=== PATIENT | male | born 1950 | race Caucasian/White ===

== ENCOUNTER 2016-08-06 20:23 | Inpatient (IN) | payer SELFPAY ==
[~2016-08-06] VITALS: Ht 172.7 cm; Wt 72.6 kg
--- NOTE | ~2016-08-06 | EC ---
PATIENT:FABRIZIO ALCANTAR DATE OF SERVICE: 08/06/16 SEX: M MEDICAL RECORD: [id number] DATE OF : [birth year] LOCATION:D.MS Batres220 AGE OF PATIENT: 65 ADMISSION DATE: 08/06/16 REFERRING PHYSICIAN: INTERPRETING PHYSICIAN: KAMRYN RALPH MD ECHOCARDIOGRAM REPORT ECHO CHARGES 4 ECHO COMPLETE CLINICAL DIAGNOSIS: MRSA - R/O VEGETATION ECHOCARDIOGRAPHIC MEASUREMENTS (adult normal given) AC root (d.<3.7cm) 3.5 LV Septum d (<1.2 cm> 1.8 Valve Excursion 2.1 LV Septum (systole) 2.3 Left Atria (s.<4.0cm> 3.2 LVPW d(<1.2cm) 1.4 RV (d.<2.3cm) 2.3 LVPW (sytole) 2.0 LV diastole(<5.6CM) 4.8 MV E-F(>70mm/sec) LV systole 3.0 LVOT Diameter 1.9 MV exc.(>10mm) Est.ejection fraction (50-75%) Pericardial Effusion N DOPPLER: LVIT A 51.0 E 90.0 LA RVSP LVOT 102 AOP1/2T Asc. Ao 130 RVOT 71.0 RA PA 82.0 AV Gradient Peak 6.7 AV Mean 3.3 AV Area 2.2 MV Gradient Peak 4.0 MV Mean 1.7 MV Area COMMENTS: Radiologist Physician: Barb CULLENOE Parking Meter Installer:Clement Eden TAPE# PACS DATE OF SERVICE: 08/13/2016 Echocardiogram FINDINGS: 1. Left ventricular chamber size is within normal limits. Left ventricular systolic function is normal. Overall ejection fraction estimated at 60%. 2. Left atrium, right atrium, and right ventricular chamber sizes are within normal limits. 3. Valvular structures have normal structure and motion. ECHOCARDIOGRAM REPORT [id number] FABRIZIO ALCANTAR 4. Doppler interrogation reveals moderate mitral regurgitation. No other valvular insufficiency or stenosis. 5. No evidence of pericardial effusion or left ventricular thrombus. 6. No evidence of vegetative endocarditis. TRANSINT:[id number] Voice Confirmation ID: [id number] DOCUMENT ID: [id number] KMARYN RALPH MD CC: [id number] DICTATION DATE: 08/13/16 1249 VIDEO SURVEILLANCE TECHNICIAN: 08/13/16 1520 ADM IN [place] [address] [place] [address]
--- NOTE | ~2016-08-06 | HEMODYNAMI ---
PATIENT:FABRIZIO ALCANTAR MEDICAL RECORD: [id number] : [birth year] LOCATION:D.MS Batres2201 ADMISSION DATE: 08/06/16 Generatedon:08/13/201614:33 Patient name: FABRIZIO ALCANTAR Patient #: [id number] SSN: : Date of study: 08/13/2016 Page: Of Hemodynamic Procedure Report Patient Data Patient Demographics Procedure consent was obtained First Name: FABRIZIO Gender: Male Last Name: KATHARINE : 1950 Patient #: [id number] Age: 65 year(s) Race: Unknown Additional ID: [id number] Contact details Address: UNKNOWN State: [place] City: [facility] Zip code: [address] Admission Admission Data Admission Date: 08/06/2016 Admission Time: 23:44 Room #: [id number] Height (in.): 68 BSA: 1.86 (m2) Height (cm.): 172.72 BMI: 24.33 (kg/m2) Weight (lbs.): 160 Weight (kg.): 72.57 Procedure Procedure Types Cath Procedure Peripheral Cath Diagnostic Procedure Cath Peripheral US Vascular Access PICC PICC Line Placement Fluoro Fluoro To 1 Hour Procedure Description Procedure Date Procedure Date: 08/13/2016 Procedure Start Time: 14:20 Procedure End Time: 14:33 Procedure Staff Name Function Sanchez Herrera MD Performing Physician Linda Vu RT Scrub Kaylie Tolliver RN Nurse Lamar Canales RN Nurse Kaylie Tolliver RN Vice President Of Academic Affairs Kaylie Tolliver RN Monitor Procedure Data Cath Procedure Fluoroscopy Diagnostic fluoroscopy Total fluoroscopy Time: 0.7 time: 0.7 min min Diagnostic fluoroscopy Total fluoroscopy dose: 6 dose: 6 mGy mGy Contrast Material Contrast Material Type Amount (ml) Isovue 370 0 Hemodynamics Rest BSA: 1.86 (m2) O2 Consumption: Estimated: 252.96 (ml/min) O2 Consumption indexed : Estimated:136 (ml/min/m) Pre Cath Intra NCS Post Cath Procedure Log Time Note 13:40:52 Patient Weight : 160 kg 13:40:55 Patient Height : 68 cm 13:41:48 Use device set PICC 13:41:50 SorbaView Shield opened to sterile field. 13:41:51 Sterile Angiographic Pack opened to sterile field. 13:41:52 Bag Decanter opened to sterile field. 13:42:02 PowerPICC 5Fr double lumen catheter opened to sterile field. 13:42:19 PICC 13:50:45 Kaylie Tolliver RN sent for patient. Start room use. 13:55:55 Patient received from Med/Surg to IR Alert and oriented. Tansferred to table in Supine position. 14:02:09 Time tracking: Regular hours 14:02:58 Signed procedure consent form obtained from patient. 14:03:01 Pre-procedure instructions explained to patient. 14:03:46 Right Arm area was prepped with chlora-prep and draped in sterile fashion 14:16:16 Sedation plan: Local Anesthetic Lidocaine 14:16:22 --------ALL STOP TIME OUT------ 14:16:23 Final Timeout: patient, procedure, and site verified with staff and physician. All members of the team are in agreement. 14:16:27 Sharps counted by scrub and verified by R.N. 14:16:31 Procedure started. 14:16:31 Full Disclosure recording started 14:20:51 Local anesthetic to right arm with Lidocaine 1% by Sanchez Herrera MD.INITIAL ACCESS ONLY 14:20:54 Venous access obtained using ultrasound guidance. 14:23:18 PICC line was trimmed to 38cm and advanced to the superior vena cava.Position verified under fluoroscopy. 14:28:00 Procedure ended.(Physican Out) 14:28:14 Fluoroscopy time 00.70 minutes. 14:28:18 Fluoroscopy dose: 6 mGy 14:28:18 Flurop Dose total: 6 14:28:22 Contrast amount:Isovue 370 0ml. 14:28:24 Sharps counted by scrub and verified by R.N. 14:28:30 Insertion/operative site no bleeding no hematoma. 14:28:38 Post-op/insertion site Right Arm dressed using a Jacob Sheild. 14:29:09 Post right arm:stable, clean and dry 14:29:19 Post procedure instruction explained to patient.Patient verbalizes understanding. 14:30:37 Procedure type changed to Cath procedure, Peripheral Cath Diagnostic Procedure, Cath Peripheral, US Vascular Access, PICC, PICC Line Placement, Fluoro, Fluoro To 1 Hour 14:32:48 Procedure and supply charges have been captured, reviewed, submitted and are correct. 14:32:55 Patient transfered to Med/Surg with Bed. 14:33:01 Procedure ended. 14:33:01 Full Disclosure recording stopped Device Usage Item Name Manufacture Quantity Catalog Hospital Part Current Minimal Lot# / Number Charge Number Stock Stock Serial# Code Jacob Day [id number] 5 Shield Sterile Cardinal 1 [id number] 5 Angiographic Health Pack Bag Decanter Microtek 1 [id number] 5 [employer] [facility] [id number] 5 5Fr double lumen catheter Signature Audit [place] Stage Time Signature Unsigned Intra-Procedure 08/13/2016 Kaylie Tolliver RN 2:33:33 PM Signatures Monitor : Kaylie Tolliver RN Signature : Date : Time : [place] [id number] [place] [address]
[2016-08-06 21:24] LABS: HEMATOCRIT 35.7 % (42.0-54.0); HEMOGLOBIN 11.8 g/dL (13.5-17.5); MCH 28.7 pg (26.0-34.0); MCHC 33.1 g/dL (31.0-37.0); MCV 86.9 fL (80.0-100.0); MEAN PLATELET VOLUME 9.9 fL (7.4-10.4); PLATELET COUNT 349 10x3/uL (130-400); RBC 4.11 10x6/uL (4.20-6.10); RDW 12.3 % (11.5-14.5); WBC 22.8 10x3/uL (4.8-10.8)
[2016-08-06 21:40] LABS: ANION GAP 10.6 mmol/L (8-16); BILIRUBIN - TOTAL 0.53 mg/dL (0.2-1.3); CALCIUM 8.5 mg/dL (8.5-10.1); CARBON DIOXIDE 30.3 mmol/L (21.0-32.0); CREATININE - SERUM 1.4 mg/dL (0.6-1.3); POTASSIUM - SERUM 3.9 mmol/L (3.5-5.1); PROTEIN - SERUM 7.4 g/dL (6.4-8.2)
[2016-08-06 22:43] LABS: LYMPHOCYTES 10 % (15-50); NEUTROPHILS 88 % (40-80); PLATELET ESTIMATE NORMAL
[2016-08-06 23:18] LABS: CREATINE KINASE 14 UL (21-232); PRO BNP 433 pg/mL (0-125)
[2016-08-06 23:19] LABS: TROPONIN-I < 0.017 ng/mL (0.000-0.060)
[2016-08-06 23:21] LABS: APTT 35.6 SECONDS (22.8-39.4); INR 1.28 (0.85-1.17); PROTIME 15.9 SECONDS (11.6-15.0)
[2016-08-06 23:32] LABS: HEMOGLOBIN A1C 13.2 % (4.8-6.0)
[2016-08-07] VITALS (7 sets, daily range): BP systolic 127–151; BP diastolic 59–72; Ht 172.7 cm; Wt 72.6 kg
--- NOTE | 2016-08-07 00:49 | NUR ---
RN NOTE: PT ARRIVED ON UNIT VIA STRETCHER ESCORTED BY ER NURSE AND SPOUSE. TRANSFERRED TO BED AND POSITIONED FOR COMFORT. ORIENTED TO ROOM AND CALL LIGHT. ELEVATED RIGHT FOOT ON PILLOW. WOUND ON BOTTOM OF RIGHT FOOT UNDER GREAT AND 2ND TOE, WITH REDNESS AND SWELLING.
--- NOTE | 2016-08-07 00:52 | NUR ---
RN NOTE: ADMISSION ASSESSMENT COMPLETE VIA FLOW SHEET.
--- NOTE | 2016-08-07 01:06 | NUR ---
RECIEVED TO ROOM 2200 VIA STRECHER FROM ER ACCOMPAINED BY NEONATAL CRITICAL CARE NURSE. AWAKE,ALERT.ORIENTED. SL TO LEFT FOREARM WITHOUT REDNESS OR EDEMA NOTED. RIGHT FOOT WIHT EDEMA NOTED. HAS OPEN SORE TO BASE OF TOES. NO DRAINAGE NOTED. CULTURES OBTAINED IN ER. CL IN REACH.
--- NOTE | 2016-08-07 02:50 | NUR ---
RESTING QUIETLY. NO DISTRESS NOTED..CL IN REACH.
--- NOTE | 2016-08-07 05:29 | NUR ---
RESTING QUIETLY. NO DISTRESS NOTED. CL IN REACH. LONG TERM CARE SOCIAL WORKER REMAINS AT BEDSIDE.
--- NOTE | 2016-08-07 09:03 | NUR ---
SCHEDULED MEDICATIONS ADMINISTERED AT THIS TIME. LEFT WRIST PATENT WITH NO S/S OF INFILTRATION PRESENT. SIGNIFICANT OTHER AT BEDSIDE. CALL LIGHT IN REACH, WILL CONTINUE WITH PLAN OF CARE. BED IN LOWEST POSITION WITH WHEELS LOCKED.
[2016-08-07 10:29] LABS: BASOPHILS 0.1 % (0-2); EOSINOPHILS 0.3 % (0-7); HEMOGLOBIN 11.1 g/dL (13.5-17.5); IMMATURE GRANULOCYTES 0.5 % (0-5); LYMPHOCYTES 7.2 % (15-50); MCH 28.5 pg (26.0-34.0); MCHC 33.6 g/dL (31.0-37.0); MEAN PLATELET VOLUME 9.1 fL (7.4-10.4); MONOCYTES 3.7 % (2-11); NEUTROPHILS 88.2 % (40-80); PLATELET COUNT 292 10x3/uL (130-400); RBC 3.89 10x6/uL (4.20-6.10); RDW 12.2 % (11.5-14.5); WBC 19.4 10x3/uL (4.8-10.8)
[2016-08-07 10:30] LABS: MCV 84.8 fL (80.0-100.0)
[2016-08-07 10:50] LABS: ALBUMIN 1.7 g/dL (3.4-5.0); ANION GAP 5.3 mmol/L (8-16); BILIRUBIN - TOTAL 0.47 mg/dL (0.2-1.3); CALCIUM 8.3 mg/dL (8.5-10.1); CARBON DIOXIDE 33.2 mmol/L (21.0-32.0); CREATININE - SERUM 1.1 mg/dL (0.6-1.3); POTASSIUM - SERUM 3.5 mmol/L (3.5-5.1); PROTEIN - SERUM 6.7 g/dL (6.4-8.2)
--- NOTE | 2016-08-07 12:14 | NUR ---
BLOOD SUGAR CHECKED AT THIS TIME AND 285. PT TREATED WITH 10 UNITS OF HUMULIN PER ORDER. SCD'S APPLIED AND BOX ALARM TO PT FOR FALL PRECAUTIONS. ASSESSMENT PERFORMED PER FLOWSHEET. PROVIDED PT WITH INCENTIVE SPIROMETER AND INSTRUCTED ON USE. CALL LIGHT IN REACH AND DOOR OPEN. WILL CONTINUE WITH PLAN OF CARE.
--- NOTE | 2016-08-07 13:09 | NUR ---
SPOKE WITH CAMRYN SOLIS TECH ON MED 2 REGARDING NEED FOR TELEMETRY. THERE IS A WAITING LIST AT THIS TIME, BUT PT PLACED ON IT.
--- NOTE | 2016-08-07 19:15 | NUR ---
BEDSIDE REPORT RECEIVED AND CARE OF PT ASSUMED. PT JUST RETURNED FROM MRI...C/O FEELING BAD AND VERY NAUSEATED. HIS C/O THAT RADIOLOGY WAS ROUGH WITH HIM. RE-STARTED IV FLUIDS. TELEMETRY REPLACED. ELEVATED RIGHT FOOT ON PILLOW. WILL MONITOR CLOSLEY FOR NEEDS.
--- NOTE | 2016-08-07 19:20 | NUR ---
ZOFRAN 4 MG IVP GIVEN FOR NAUSEA PER PRN ORDER.
--- NOTE | 2016-08-07 20:41 | NUR ---
HS MEDICATIONS GIVEN TO INCLUDE TYLENOL FOR ELEVATED TEMP. WILL CONTINUE TO MONITOR FOR MEEDS.
--- NOTE | 2016-08-07 20:50 | NUR ---
GAVE TYLENOL PO FOR ELEVATED TEMP. WILL MONITOR FOR EFFECTIVENESS.
--- NOTE | 2016-08-07 21:15 | NUR ---
PT FEELING BETTER. GAVE SNACK OF DIET SODA AND DENIA CRACKERS.
[2016-08-08] VITALS (11 sets, daily range): BP systolic 111–157; BP diastolic 52–79
[2016-08-08 04:36] LABS: BASOPHILS 0.1 % (0-2); EOSINOPHILS 0.2 % (0-7); HEMATOCRIT 33.4 % (42.0-54.0); HEMOGLOBIN 11.1 g/dL (13.5-17.5); IMMATURE GRANULOCYTES 0.4 % (0-5); LYMPHOCYTES 5.9 % (15-50); MCH 28.5 pg (26.0-34.0); MCHC 33.2 g/dL (31.0-37.0); MCV 85.6 fL (80.0-100.0); MEAN PLATELET VOLUME 9.5 fL (7.4-10.4); MONOCYTES 5.6 % (2-11); NEUTROPHILS 87.8 % (40-80); PLATELET COUNT 315 10x3/uL (130-400); RDW 12.3 % (11.5-14.5); WBC 18.3 10x3/uL (4.8-10.8)
[2016-08-08 04:51] LABS: ALBUMIN 1.6 g/dL (3.4-5.0); ANION GAP 7.1 mmol/L (8-16); BILIRUBIN - TOTAL 0.41 mg/dL (0.2-1.3); CALCIUM 8.2 mg/dL (8.5-10.1); CARBON DIOXIDE 33.2 mmol/L (21.0-32.0); CHOL - HDL RATIO 3.2 ratio (2.3-4.9); CREATININE - SERUM 1.2 mg/dL (0.6-1.3); LDL-HDL RATIO 1.7 ratio (1.5-3.5); POTASSIUM - SERUM 3.3 mmol/L (3.5-5.1); PROTEIN - SERUM 6.6 g/dL (6.4-8.2); THYROID STIMULATING HORMONE 0.78 uIU/mL (0.36-3.74)
--- NOTE | 2016-08-08 05:40 | NUR ---
POTASSIUM LEVEL 3.3 THIS AM REQUIRING COVERAGE WITH X4 - 10 MEQ RIDERS PER ELECTROLYTE PROTOCAL. FIRST RIDER STARTING NOW.
--- NOTE | 2016-08-08 08:16 | NUR ---
AWAKE AND ALERT.ORIENTED X3. NO C/O AT THIS TIME. LUNGS ARE CLEAR BUT DIMINISHED. DENIES COUGH. SKIN IS INTACT WITHOUT REDNESS EXCEPT WOUND TO RIGHT FOOT WHICH IS DARKENED AND EXCORIATED BUT REPORTS LOOKING MUCH IMPROVED TODAY. WOUND TO LEFT FOOT UNDER 3RD TOE IS CLOSED WITH DARKENED AREA IN CENTER. IV TO LEFT HAND IS PATENT WITHOUT REDNESS AT INSERTION SITE. DENIES NEEDS. AT BEDSIDE.
--- NOTE | 2016-08-08 10:21 | NUR ---
CONSENTS OBTAINED. ALL QUESTIONS ANSWERED.
--- NOTE | 2016-08-08 12:04 | NUR ---
FSBS 284. GIVEN 10 UNITS REGULAR SUBQ PER SS. PATIENT REMAINS NPO.
--- NOTE | 2016-08-08 14:08 | NUR ---
Patient Name: FABRIZIO ALCANTAR Admission Status: ER Accout number: [id number] Admission Date: 08-06-2016 : 1950 Admission Diagnosis:TYPE 2 DIABETES MELLITUS WITH OTHER SKIN COMPLICATIONS Attending: DALTON Current LOS: 2 Anticipated DC Date: 08-13-2016 Planned Disposition: Home Primary Insurance: UNINSURED DISCOUNT PLAN Discharge Planning Comments: CM MET WITH PATIENT AND (SNOYA) REGARDING D/C NEEDS AND PLANS. STATED SHE WILL DRIVE PATIENT HOME AT DISCHARGE. THERE ARE NO STEPS OR STAIRS AT HIS HOME. PATIENT IS INDEPENDENT WITH HIS CARE AND HAS A WALKER, CANE, AND WHEELCHAIR AT HOME. PATIENT DOES NOT HAVE A PCP AND CHOSE TO USE [facility] ON [address] FOR HIS PHARMACY. PATIENTS DID NOT WANT TO CHOOSE A HOME HEALTH AT THIS TIME AND STATED SHE WANTED TO WAIT AND SEE WHAT DOCTOR RECOMMENDS. CM WILL CONTINUE TO FOLLOW PATIENT WITH D/C NEEDS AND PLANS. PCP NONE [facility] [address] [phone] SONYA () [phone] Chip Crusher Operator: Christen Garcia Is the patient Alert and Oriented? Yes 0 * How many steps to enter\exit or inside your home? 0 0 * PCP NONE 0 * Pharmacy [facility] [address] 0 * Preadmission Environment Home with Family 0 * ADLs Independent 0 * Equipment Cane Walker Wheelchair 0 * List name and contact numbers for known caregivers / representatives who currently or will assist patient after discharge: SONYA () [phone] 0 * Community resources currently utilized None 0 * Additional services required to return to the preadmission environment? Yes 0 * Can the patient safely return to the preadmission environment? Yes 0 * Has this patient been hospitalized within the prior 30 days at any hospital? No 0 Grand Total: 0
--- NOTE | 2016-08-08 14:26 | NUR ---
OFF UNIT VIA BED FOR SURGERY. WITH PATIENT.
--- NOTE | 2016-08-08 16:20 | NUR ---
RETURNED FROM SURGERY. A/O X3. WOUND VAC TO RIGHT FOOT PATENT WITH SEROUS SANGUINESS DRAINAGE. NO NEEDS. NOTED. VSS.
--- NOTE | 2016-08-08 18:32 | NUR ---
ATE ALL OF SUPPER. DENIES NEEDS. AT BEDSIDE. VSS. DRESSING TO RIGHT FOOT INTACT.
--- NOTE | 2016-08-08 21:40 | NUR ---
PATIENT RESTING IN BED WITH AT BEDSIDE AND DENIES NEEDS AT THIS TIME. ADMINISTERED MEDS PER ORDERS. PATIENT DENIES OTHER NEEDS AT THIS TIME. BED IN LOWEST POSITION AND CALL LIGHT WITHIN REACH. ENCOURAGED THE PATIENT TO CALL IF HE HAS FURTHER NEEDS.
[2016-08-09] VITALS: BP 136/71
[2016-08-09 04:00] VITALS: BP 135/60
[2016-08-09 06:58] LABS: BASOPHILS 0.1 % (0-2); EOSINOPHILS 0.2 % (0-7); HEMOGLOBIN 10.5 g/dL (13.5-17.5); IMMATURE GRANULOCYTES 0.5 % (0-5); LYMPHOCYTES 6.9 % (15-50); MCH 28.5 pg (26.0-34.0); MCHC 32.8 g/dL (31.0-37.0); MCV 86.7 fL (80.0-100.0); MONOCYTES 5.5 % (2-11); NEUTROPHILS 86.8 % (40-80); PLATELET COUNT 277 10x3/uL (130-400); RBC 3.69 10x6/uL (4.20-6.10); RDW 12.5 % (11.5-14.5)
[2016-08-09 07:23] LABS: ALBUMIN 1.5 g/dL (3.4-5.0); ANION GAP 4.3 mmol/L (8-16); BILIRUBIN - TOTAL 0.44 mg/dL (0.2-1.3); CALCIUM 7.8 mg/dL (8.5-10.1); CARBON DIOXIDE 31.2 mmol/L (21.0-32.0); CREATININE - SERUM 1.1 mg/dL (0.6-1.3); POTASSIUM - SERUM 3.5 mmol/L (3.5-5.1); PROTEIN - SERUM 6.2 g/dL (6.4-8.2)
--- NOTE | 2016-08-09 07:30 | NUR ---
AWAKE AND ALET. ORIENTED X3. NO C/O AT THIS TIME. LUNGS ARE CLEAR BILATERALLY, OCCASSIONAL DRY COUGH NOTED. SKIN IS INTACT WITHOUT REDNESS EXCEPT WOUND TO RIGHT FOOT AMPUTATION OF SECOND TOE, WHICH HAS A WOUND VAC IN PLACE WITH SCANT SEROUS SANGUINESS DRAINAGE NOTED. IV TO LEFT FOREARM IS PATENT WITHOUT REDNESS AT INSERTION SITE. DENIES NEEDS.
[2016-08-09 07:32] VITALS: BP 117/52
--- NOTE | 2016-08-09 08:15 | NUR ---
BREAKFAST SERVED IN ROOM. AT BEDSIDE ASSISTED WITH SET UP. DENIES NEEDS.
[2016-08-09 11:20] VITALS: BP 152/68
--- NOTE | 2016-08-09 12:00 | NUR ---
FSBS 260. GIVEN 10 UNITS REGULAR SUBQ PER SS. LUNCH SERVED IN ROOM. FEEDS SELF. 275cc CLEAR YELLOW URINE IN URINAL.
--- NOTE | 2016-08-09 15:00 | NUR ---
HAS RETURNED TO ROOM. DENIES NEEDS.
[2016-08-09 15:26] VITALS: BP 142/60
--- NOTE | 2016-08-09 17:14 | NUR ---
SITTING UP IN BED EATING SUPPER. FSBS 249. GIVEN 8 UNITS REGULAR SUBQ PER SS. AT BEDSIDE. DENIES NEEDS.
[2016-08-09 20:00] VITALS: BP 146/61
--- NOTE | 2016-08-09 21:03 | NUR ---
PATIENT RESTING IN BED WITH AT BEDSIDE. ADMINISTERED MEDS PER ORDERS. PATIENT DENIES OTHER NEEDS AT THIS TIME. BED IN LOWEST POSITION AND CALL LIGHT WITHIN REACH. ENCOURAGED THE PATIENT TO CALL IF HE HAS NEEDS.
[2016-08-10] VITALS: BP 131/59
[2016-08-10 04:00] VITALS: BP 142/66
[2016-08-10 05:25] LABS: BASOPHILS 0.1 % (0-2); EOSINOPHILS 0.8 % (0-7); HEMATOCRIT 31.2 % (42.0-54.0); HEMOGLOBIN 10.1 g/dL (13.5-17.5); IMMATURE GRANULOCYTES 0.6 % (0-5); LYMPHOCYTES 9.2 % (15-50); MCH 28.4 pg (26.0-34.0); MCHC 32.4 g/dL (31.0-37.0); MCV 87.6 fL (80.0-100.0); MEAN PLATELET VOLUME 9.5 fL (7.4-10.4); MONOCYTES 5.4 % (2-11); NEUTROPHILS 83.9 % (40-80); PLATELET COUNT 329 10x3/uL (130-400); RBC 3.56 10x6/uL (4.20-6.10); RDW 12.4 % (11.5-14.5); WBC 15.8 10x3/uL (4.8-10.8)
[2016-08-10 06:03] LABS: ALBUMIN 1.4 g/dL (3.4-5.0); ANION GAP 8.2 mmol/L (8-16); BILIRUBIN - TOTAL 0.33 mg/dL (0.2-1.3); C-REACTIVE PROTEIN 17.7 mg/dL (0.0-0.9); CALCIUM 7.5 mg/dL (8.5-10.1); CARBON DIOXIDE 29.6 mmol/L (21.0-32.0); CREATININE - SERUM 1.2 mg/dL (0.6-1.3); POTASSIUM - SERUM 3.8 mmol/L (3.5-5.1); PROTEIN - SERUM 6.2 g/dL (6.4-8.2)
[2016-08-10 06:26] LABS: ERYTHROCYTE SEDIMENTATION RATE 117 mm/hr (0-20)
--- NOTE | 2016-08-10 07:57 | NUR ---
AWAKE AND ALERT. ORIENTED X3. NO C/O THIS AM. LUNGS ARE CLEAR BILATERALLY, OCCASSIONAL DRY COUGH NOTED. SKIN IS INTACT WITHOUT REDNESS EXCEPT WOUND TO RIGHT FOOT WHICH HAS A WOUND VAC IN PLACE WITH SEROUS SANGUINESS DRAINAGE NOTED. IV TO LEFT FOREARM IS PATENT WITHOUT REDNESS AT INSERTION SITE. AT BEDSIDE. DENIES NEEDS.
[2016-08-10 09:06] VITALS: BP 134/83
--- NOTE | 2016-08-10 09:20 | NUR ---
UP TO CHAIR AT BEDSIDE MAX ASSIST OF ONE WITH RW. DID WELL FOR FIRST TRANSFER. IN ROOM.
[2016-08-10 11:48] VITALS: BP 134/55
--- NOTE | 2016-08-10 13:20 | NUR ---
ASSISTED BACK TO BED MIN ASSIST X2. POSITIONED IN BED FOR COMFORT.
--- NOTE | 2016-08-10 15:00 | NUR ---
RESTING QUIELTY WITH EYES CLOSED. NO NEEDS NOTED.
[2016-08-10 16:44] VITALS: BP 149/66
--- NOTE | 2016-08-10 17:00 | NUR ---
FSBS 244. GIVEN 8 UNITS REGULAR SUBQ PER SS. SUPPER SERVED IN ROOM. SIGNIFICANT OTHER IN ROOM. DENIES NEEDS.
[2016-08-10 20:00] VITALS: BP 133/60
--- NOTE | 2016-08-10 21:10 | NUR ---
PATIENT RESTING IN BED WITH AT BEDSIDE AND DENIES NEEDS AT THIS TIME. ADMINISTERED MEDS PER ORDERS. PATIENT AND DENY NEEDS AT THIS TIME. BED IN LOWEST POSITION AND CALL LIGHT WITHIN REACH. ENCOURAGED THE PATIENT AND HIS TO CALL IF THEY HAVE NEEDS.
[2016-08-11] VITALS: BP 134/58
[2016-08-11 04:00] VITALS: BP 136/58
[2016-08-11 05:24] LABS: BASOPHILS 0.1 % (0-2); EOSINOPHILS 1.3 % (0-7); HEMATOCRIT 31.9 % (42.0-54.0); HEMOGLOBIN 10.2 g/dL (13.5-17.5); IMMATURE GRANULOCYTES 0.5 % (0-5); LYMPHOCYTES 11.2 % (15-50); MCH 28.2 pg (26.0-34.0); MCV 88.1 fL (80.0-100.0); MEAN PLATELET VOLUME 9.1 fL (7.4-10.4); MONOCYTES 5.5 % (2-11); NEUTROPHILS 81.4 % (40-80); PLATELET COUNT 337 10x3/uL (130-400); RBC 3.62 10x6/uL (4.20-6.10); RDW 12.6 % (11.5-14.5)
[2016-08-11 05:45] LABS: WBC 11.7 10x3/uL (4.8-10.8)
[2016-08-11 05:59] LABS: ALBUMIN 1.3 g/dL (3.4-5.0); ANION GAP 6.1 mmol/L (8-16); BILIRUBIN - TOTAL 0.3 mg/dL (0.2-1.3); CALCIUM 7.8 mg/dL (8.5-10.1); CREATININE - SERUM 1.3 mg/dL (0.6-1.3); POTASSIUM - SERUM 4.1 mmol/L (3.5-5.1); PROTEIN - SERUM 6.2 g/dL (6.4-8.2)
--- NOTE | 2016-08-11 07:45 | NUR ---
PATIENT IS RESTING WITH HOB UP 30 DEGREES. EYES ARE CLOSED, CALL LIGHT HAS BEEN PUSHED, IV PUMP BEEPING. HE DID NOT AWAKEN TO PUMP ADJUSTMENTS BUT DID SO EASILY TO VOICE. HE IS ALONE, DENIED NEEDS/PAIN. WOUND VAC IS ON AND SUCTION APPLIED TO THE RIGHT FOOT WOUND. SMALL AMT OF DRAINAGE NOTED IN THE COLLECTION CANISTER. IV SITE TO THE LEFT FOREARM IS WITHOUT REDNESS OR SIGNS OF INFILTRATION.
[2016-08-11 08:08] VITALS: BP 165/75
[2016-08-11 11:27] VITALS: BP 160/73
--- NOTE | 2016-08-11 13:03 | NUR ---
DR. ALONZO DICTATION TO DC ISOLATION NOTED. CALLED TO CONFIRM THIS WITH INFECTION CONTROLL. WAS DIRECTED TO MICROBIOLOGY FOR CONFIRMATION AND RECEIVED IT. THE WOUND GREW STAPH SENSITIVE TO METHACILLIN.
--- NOTE | 2016-08-11 15:05 | NUR ---
Wound Care/Wound Vac dressing change: On 08/08/16 amputation of 2nd toe on left foot. Removed wound vac dressing and noted no odor. Wound was clean and bled easily. Wound bed is red/beefy and extends from mid dorsal foot to plantar. Also noted black escar around the left great toe. Cleansed wound and surrounding skin with saf cleanse and dried. Applied cavilon skin prep to periwound. 1 piece of black foam was placed in wound bed and secured with drape. Another piece of black foam was placed as a pigtail for the TRAC pad. Negative pressure was achieved @ -125mmhg moderate continuous. Wound care will monitor.
[2016-08-11 15:54] VITALS: BP 144/64
--- NOTE | 2016-08-11 18:11 | OP ---
PATIENT NAME: FABRIZIO ALCANTAR MEDICAL RECORD: [id number] :[birth year] LOCATION:D.MS Batres1 ADMISSION DATE:08/06/16 SURGEON: JOHN HUNT MD DATE OF OPERATION: 08/08/2016 PREOPERATIVE DIAGNOSIS: Osteomyelitis, left foot, second toe and second ray. POSTOPERATIVE DIAGNOSIS: Osteomyelitis, left foot, second toe and second ray. PROCEDURES: 1. MTP disarticulation of the second toe, left foot. 2. Partial ray resection of the second foot. 3. Application of wound VAC. SURGEON: John Hunt MD. ANESTHESIA: General. INTRAOPERATIVE COMPLICATIONS: None. SUMMARY OF PATHOLOGIC FINDINGS: The patient basically had purulence running from the mid plantar aspect underneath the second ray around to the mid dorsal foot aspect with gross destruction of the second MTP joint. Substantial amount of skin was noted and tissue. Excisional debridement include skin, subcutaneous tissue, portions of fat, fascia, muscle and bone much greater than 20 cm. OPERATIVE SUMMARY IN DETAIL: After obtaining the appropriate preoperative orthopedic surgery consent as well as anesthetic consultation, evaluation and clearance, the patient was brought to the operating room and placed on the operating table in supine position. After adequate general laryngeal mask was administered, tourniquet was placed about the proximal aspect of the left lower extremity. Left lower extremity was then prepped and draped in routine sterile fashion. Leg was elevated. Tourniquet was then deflated to 350 mmHg. An incision was made at the base of the MTP joint with substantial amounts of purulence coming forth. At this point, an incision was made on the medial lateral aspect of the second toe, taken down to the level of the MTP joint. This was disarticulated and removed in its entirety. Unfortunately, there was still purulence under the second ray. The incision was carried out to about the mid dorsum of the second ray on the dorsal aspect and then down to the plantar aspect where there was a large area of pus and abscess. Copious curettage, rongeur and scalpel debridement was carried out to get good bleeding bone and get back to healthy tissue in all planes. The wound was then copiously irrigated and bulb syringe and lavage was done. The tourniquet was then deflated. Good bleeding was noted, not excessively however. The wound was again irrigated and then a wound VAC was applied with good seal between the first and third toe. Wound VAC was set at 125 mmHg continuous suction, medium intensity. The patient was then awakened and taken to recovery room in stable condition. All final needle and sponge counts were correct. TRANSINT:[id number] Voice Confirmation ID: [id number] DOCUMENT ID: [id number] OPERATIVE REPORT [id number] FABRIZIO ALCANTAR MD, JOHN HERNDON at 1811 CC: [id number] DICTATION DATE: 08/08/16 1529 ELEMENTARY SCHOOL TEACHER: 08/09/[address] [facility] [address] [place] [address]
--- NOTE | 2016-08-11 19:00 | NUR ---
PATIENT ON RIGHT SIDE. HOB 30 DEGREES. AAOX4. RR EVEN AND UNLABORED. 0 S/S OF DISTRESS. DENIES PAIN AT THIS TIME. IV TO LEFT FA PATENT WITH NO REDNESS OR SWELLING. DRESSING TO RIGHT FOOT CDI WITH WOUNDVAC IN PLACE. SCD TO LLE. AT BEDSIDE. SRX2. BED LOW. CALL LIGHT WITHIN REACH.
[2016-08-11 20:00] VITALS: BP 132/50
--- NOTE | 2016-08-11 22:10 | NUR ---
ASSESSMENT COMPLETE. NIGHTIME MED GIVEN. ERASTO HELD FOR BS OF 134. BUTT PASTE APPLIED TO REDNESS ON BUTTOCKS.
[2016-08-12] VITALS (7 sets, daily range): BP systolic 126–152; BP diastolic 56–72
[2016-08-12 05:07] LABS: BASOPHILS 0.1 % (0-2); EOSINOPHILS 1.6 % (0-7); HEMATOCRIT 31.2 % (42.0-54.0); IMMATURE GRANULOCYTES 0.6 % (0-5); LYMPHOCYTES 12.9 % (15-50); MCH 28.1 pg (26.0-34.0); MCHC 32.1 g/dL (31.0-37.0); MCV 87.6 fL (80.0-100.0); MEAN PLATELET VOLUME 9.3 fL (7.4-10.4); MONOCYTES 5.9 % (2-11); NEUTROPHILS 78.9 % (40-80); PLATELET COUNT 373 10x3/uL (130-400); RBC 3.56 10x6/uL (4.20-6.10); RDW 12.5 % (11.5-14.5); WBC 12.7 10x3/uL (4.8-10.8)
[2016-08-12 05:32] LABS: ALBUMIN 1.4 g/dL (3.4-5.0); BILIRUBIN - TOTAL 0.38 mg/dL (0.2-1.3); CALCIUM 7.6 mg/dL (8.5-10.1); CREATININE - SERUM 1.3 mg/dL (0.6-1.3); PROTEIN - SERUM 6.2 g/dL (6.4-8.2)
--- NOTE | 2016-08-12 06:10 | NUR ---
MORNING MED GIVEN. 8 UNITS HUMULIN GIVEN FOR BS OF 163. NO OTHER NEEDS AT THIS TIME.
--- NOTE | 2016-08-12 07:20 | NUR ---
A&O, DENIES NEEDS, AT BEDSIDE, BED LOWEST POSITION, CALL LIGHT IN REACH, WILL CONTINUE TO MONITOR, ASSESSMENT COMPLETE
--- NOTE | 2016-08-12 08:05 | NUR ---
PATIENT ALERT IN HIGH [place]LEY POSITION EATING BREAKFAST. TOLERATING WELL. FAMILY AT BEDSIDE. SIDE RAILS UP X2. BED IN LOW POSITION. CALL LIGHT IN REACH.
--- NOTE | 2016-08-12 12:38 | NUR ---
Nutrition Follow Up: Spoke with pt and regarding DM diet. Pt reported that he drank ~1L of cola per day along with Gatorade. Pt also drank a large amount of juice every morning. Pt has changed to diet cola since admit to hospital. Explained CHO in diet and which foods contain CHO. Explained how CHO affect blood sugar. Stressed importance of consistent meals/snacks with appropriate servings of CHO in each. Reviewed goal range for blood sugar, A1C and what his numbers were. Provided pt with written information and encouraged pt to contact RD with any questions/concerns. Pt and spouse seem ready to make changes. Pt is eating 79% meal avg on a diabetic diet. No new wt to assess. Labs noted - Glucose elevated but trending down; A1C 13.2. Meds noted including Humulin, Metformin. Pt agreed to Byron BID to promote wound healing. Rec continue current diet. Will send Byron BID. RD will continue to monitor pt progress.
--- NOTE | 2016-08-12 19:55 | NUR ---
AWAKE ALERT,ORIENTED. IV INFUSING TO LEFT FOREARM WIHTOUT REDNESS OR EDEMA NOTED. RIK WRAP DRESSING INTACT TO RIGHT FOOT.NO DRAINAGE NOTED. CL IN REACH. AT BEDSIDE.
--- NOTE | 2016-08-13 00:20 | NUR ---
RESTING QUIETLY. NO DISTRESS NOTED. CL IN REACH
[2016-08-13 05:18] LABS: BASOPHILS 0.2 % (0-2); HEMATOCRIT 31.4 % (42.0-54.0); HEMOGLOBIN 10.3 g/dL (13.5-17.5); IMMATURE GRANULOCYTES 0.8 % (0-5); LYMPHOCYTES 11.2 % (15-50); MCH 28.7 pg (26.0-34.0); MCHC 32.8 g/dL (31.0-37.0); MCV 87.5 fL (80.0-100.0); MEAN PLATELET VOLUME 9.1 fL (7.4-10.4); MONOCYTES 6.1 % (2-11); NEUTROPHILS 79.7 % (40-80); PLATELET COUNT 378 10x3/uL (130-400); RBC 3.59 10x6/uL (4.20-6.10); RDW 12.7 % (11.5-14.5); WBC 11.1 10x3/uL (4.8-10.8)
--- NOTE | 2016-08-13 05:20 | NUR ---
AWAKE,ALERT. NO COMPLIANTS VOICED. DRSG REMAINS INTACT TO RIGHT FOOT WIHTOUT DRAINAGE. CL IN REACH.
[2016-08-13 05:43] LABS: ALBUMIN 1.4 g/dL (3.4-5.0); ANION GAP 9.6 mmol/L (8-16); BILIRUBIN - TOTAL 0.4 mg/dL (0.2-1.3); CARBON DIOXIDE 30.6 mmol/L (21.0-32.0); CREATININE - SERUM 1.1 mg/dL (0.6-1.3); POTASSIUM - SERUM 4.2 mmol/L (3.5-5.1); PROTEIN - SERUM 6.2 g/dL (6.4-8.2)
[2016-08-13 06:30] VITALS: BP 148/72
--- NOTE | 2016-08-13 07:30 | NUR ---
RESTING AT BEDSIDE, AROUSED TO VOICE, DENIES NEEDS, BED LOWEST POSITION, CALL LIGHT IN REACH, WILL CONTINUE TO MONITOR
[2016-08-13 08:01] VITALS: BP 137/62
[2016-08-13 12:46] VITALS: BP 163/66
--- NOTE | 2016-08-13 13:45 | NUR ---
WOUND CARE / VAC DRESSING CHANGE: AMPUTATION OF 2ND TOE LEFT FOOT ON 08/08/16. NO ODOR NOTED UPON REMOVAL OF VAC DRESSING. WOUND DID MODERATELY BLEED. MEASUREMENTS: 19CM X2.5CM X 1.7CM AND EXTENDES FROM MID DORSAL FOOT TO PLANTAR ASPECT. BLACK ESCHAR IS NOTED SURROUNDING THE LEFT GREAT TOE. 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 CAVILON SKIN PREP APPLIED TO PERIWOUND AND ONE PIECE OF BLACK FOAM WAS CUT TO FIT WOUND BED AND SECURED WITH DRAPE. PIGTAIL WAS CUT AND SECURED FOR TRAC PAD. NEGATIVE PRESSURE WAS ACHIEVED AT -125MMHG MOD/CONTINUOUS. PT TOLERATED WELL.
[2016-08-13 16:17] VITALS: BP 140/66
[2016-08-13 20:00] VITALS: BP 141/62
--- NOTE | 2016-08-13 20:11 | NUR ---
AWAKE,ALERT,ORIENTED. IV TO LEFT FOREARM WIHTOUT REDNESS OR EDEMA. PICC LINE TO RIGHT ARM WIHTOUT REDNESS OR EDEMA. DRSG TO RIGHT FOOT DRY INTACT. NO COMPLIANTS VOICED. CL IN REACH.
[2016-08-14] VITALS: BP 144/70
--- NOTE | 2016-08-14 00:46 | NUR ---
RESTING QUIETLY. NO DISTRESS NOTED
[2016-08-14 04:00] VITALS: BP 144/68
--- NOTE | 2016-08-14 04:31 | NUR ---
POST OP TOE AMPUTATION. PT IS SLEEPING NOW. RESP EASY, NO DISTRESS NOTED. CONTINUE SEASONER'S PLAN OF CARE.
--- NOTE | 2016-08-14 05:34 | NUR ---
NO CHANGE IN ASSESSMENT. CL IN REACH
[2016-08-14 06:51] LABS: BASOPHILS 0.1 % (0-2); EOSINOPHILS 1.7 % (0-7); HEMATOCRIT 30.2 % (42.0-54.0); HEMOGLOBIN 9.9 g/dL (13.5-17.5); IMMATURE GRANULOCYTES 0.7 % (0-5); LYMPHOCYTES 13.1 % (15-50); MCH 28.5 pg (26.0-34.0); MCHC 32.8 g/dL (31.0-37.0); MONOCYTES 4.9 % (2-11); NEUTROPHILS 79.5 % (40-80); PLATELET COUNT 370 10x3/uL (130-400); RBC 3.47 10x6/uL (4.20-6.10); RDW 12.9 % (11.5-14.5); WBC 10.2 10x3/uL (4.8-10.8)
[2016-08-14 07:10] LABS: ALBUMIN 1.5 g/dL (3.4-5.0); ANION GAP 11.3 mmol/L (8-16); BILIRUBIN - TOTAL 0.16 mg/dL (0.2-1.3); CALCIUM 7.1 mg/dL (8.5-10.1); CARBON DIOXIDE 28.6 mmol/L (21.0-32.0); CREATININE - SERUM 1.1 mg/dL (0.6-1.3); POTASSIUM - SERUM 3.9 mmol/L (3.5-5.1); PROTEIN - SERUM 5.7 g/dL (6.4-8.2)
--- NOTE | 2016-08-14 07:20 | NUR ---
LYING ON RIGHT SIDE AT THIS TIME WITH RESPIRATIONS EVEN AND NON LABORED. SIGNIFICANT OTHER AT BEDSIDE. CALL LIGHT IN REACH, WILL CONTINUE WITH PLAN OF CARE.
[2016-08-14 07:38] VITALS: BP 164/75
--- NOTE | 2016-08-14 09:15 | NUR ---
PT IS RESTING IN BED WITH EYES CLOSED. AWAKENS EASILY TO VERBAL STIMULI. PT IS ALERT AND ORIENTED X 3. DENIES ACUTE DISCOMFORT AT THIS TIME. WOUND VAC IS ON AND INTACT TO RIGHT FOOT, AMPUTATED 2ND TOE. NO DRAINAGE NOTED. IV INFUSING TO LFA WITHOUT DIFFICULTY. NO REDNESS OR EDEMA NOTED AT THE INSERTION SITE. RIGHT ARM PICC LINE NOTED. SPOUSE IS AT BEDSIDE. SR'S ARE UP X 3 IN BED. CALL LIGHT AND BEDSIDE TABLE ARE WITHIN EASY REACH.
--- NOTE | 2016-08-14 11:15 | NUR ---
DR FELIZ HERE TO SEE PT.
[2016-08-14 12:22] VITALS: BP 145/66
--- NOTE | 2016-08-14 12:26 | NUR ---
PT ASSISTED TO USE BEDPAN. 200CC DIARRHEA STOOL NOTED.
--- NOTE | 2016-08-14 14:31 | NUR ---
PT RESTING IN BED WITH EYES OPEN. ASSISTED TO USE BEDPAN. STOOL SAMPLE SENT TO LAB.
[2016-08-14 14:46] VITALS: BP 150/66
--- NOTE | 2016-08-14 18:04 | NUR ---
RESTING IN BED EATING SUPPER. NO DISTRESS NOTED.
[2016-08-14 20:00] VITALS: BP 121/54; BP 159/78
--- NOTE | 2016-08-14 20:17 | NUR ---
PATIENT RESTING IN BED. NO SIGNS OF DISTRESS NOTED. ASSISTED WITH BEDPAN. CONTINUES WITH LOOSE STOOL. SCHEDULED MEDS GIVEN. SHIFT ASSESSMENT COMPLETED. DENIES ANY NEEDS AT THIS TIME. BED LOW. CALL LIGHT IN REACH
[2016-08-15] VITALS: BP 139/69
--- NOTE | 2016-08-15 01:50 | NUR ---
PATIENT RESTING WITH EYES CLOSED, NO VISIBLE SIGNS OF DISTRESS, AND AT BEDSIDE. BED IN LOWEST POSITION AND CALL LIGHT WITHIN REACH.
[2016-08-15 04:00] VITALS: BP 116/39; BP 146/82
[2016-08-15 05:43] LABS: BASOPHILS 0.1 % (0-2); EOSINOPHILS 2.1 % (0-7); HEMATOCRIT 31.5 % (42.0-54.0); HEMOGLOBIN 10.1 g/dL (13.5-17.5); IMMATURE GRANULOCYTES 0.6 % (0-5); LYMPHOCYTES 18.8 % (15-50); MCHC 32.1 g/dL (31.0-37.0); MCV 87.3 fL (80.0-100.0); MEAN PLATELET VOLUME 8.7 fL (7.4-10.4); NEUTROPHILS 72.4 % (40-80); PLATELET COUNT 392 10x3/uL (130-400); RBC 3.61 10x6/uL (4.20-6.10); RDW 12.8 % (11.5-14.5); WBC 9.4 10x3/uL (4.8-10.8)
[2016-08-15 05:49] LABS: ALBUMIN 1.5 g/dL (3.4-5.0); ANION GAP 11.2 mmol/L (8-16); BILIRUBIN - TOTAL 0.17 mg/dL (0.2-1.3); CALCIUM 7.6 mg/dL (8.5-10.1); CARBON DIOXIDE 28.2 mmol/L (21.0-32.0); CREATININE - SERUM 1.1 mg/dL (0.6-1.3); POTASSIUM - SERUM 3.4 mmol/L (3.5-5.1); PROTEIN - SERUM 6.5 g/dL (6.4-8.2)
--- NOTE | 2016-08-15 07:25 | NUR ---
PATIENT RECEIVED ALERT IN HIGH BAILEY POSITION WITH FAMILY PRESENT. RESPIRATIONS EVEN AND UNLABORED. SIDE RAILS UP X2. BED IN LOW POSITION. CALL LIGHT IN REACH. DENIES NEEDS.
[2016-08-15 07:51] VITALS: BP 141/60
--- NOTE | 2016-08-15 08:27 | NUR ---
PATIENT ALERT IN BED. NO SIGNS OF DISTRESS NOTED. PRESENT. SCHEDULED MEDICATION ADMINISTERED. ACCU CHECK 130. SIDE RAILS UP X2. BED IN LOW POSITION. CALL LIGHT IN REACH.
[2016-08-15] MEDS ORDERED: GLUCOPHAGE500 MG PO (09:33)
[2016-08-15] MEDS ORDERED: NYSTATIN ORAL SU5 ML PO (09:33)
[2016-08-15] MEDS ORDERED: AMOXICILLIN500 M1 PO (09:33)
[2016-08-15] MEDS ORDERED: HYDROCODONE-APA1 TAB PO (09:33)
[2016-08-15] MEDS ORDERED: Ancef 2 GM/Dextrose IV (09:33)
[2016-08-15] MEDS ORDERED: PROTONIX40 MG PO (09:33)
[2016-08-15] MEDS ORDERED: FLORAJEN3 CAPS460 MG PO (09:33)
--- NOTE | 2016-08-15 11:52 | NUR ---
WOUND CARE: WOUND VAC D/C'D AND NEW ORDERS NOTED. GENTLY CLEANSED LEFT FOOT AMPUTATION SITE. PACKED LOOSELY WITH IODOFORM PACKING, COVERED WITH DRY 4X4S, WRAPPED WITH KERLIX AND SECURED WITH RIK WRAP. PT TOLERATED WELL. WOUND HAD NO ODOR OR TENDERNESS. IT BLED EASILY. TISSUE WAS RED/PINK. ESCAR REMAINS AROUND LEFT GREAT TOE.
--- NOTE | 2016-08-15 11:53 | NUR ---
PATIENT ALERT IN BED. NO SIGNS OF DISTRESS NOTED. ACCU CHECK 163. INSULIN PER SLIDING SCALE. AT BEDSIDE. SIDE RAILS UP X2. BED IN LOW POSITION. CALL LIGHT IN REACH.
[2016-08-15 12:00] VITALS: BP 152/70
--- NOTE | 2016-08-15 14:10 | NUR ---
D/C TEACHING PROVIDED TO PATIENT AND . PAPER PRESCRIPTIONS PROVIDED. STATES UNDERSTANDING. QUESTIONS ANSWERED.
--- NOTE | 2016-08-15 14:15 | NUR ---
PATIENT D/C HOME WITH . TRANSFERRED DOWNSTAIRS VIA WHEELCHAIR BY NURSE AID, TEJAL
--- NOTE | 2016-08-15 14:43 | NUR ---
LATE ENTRY: PATIENT DISCHARGED HOME TODAY. [facility] FOR PHYSICAL THERAPY ONLY. IV [facility]-WILL DELIVER TO HOME. PATIENT AND FRIEND WAS TAUGHT BY NURSE FROM [facility] ([facility]) ANTIBIOTIC INFUSION BEFORE DISCHARGE. PATIENTS FRIEND WAS TAUGHT WOUND CARE BY NURSING STAFF HERE AT [facility]. PATIENT WILL BE GOING TO DR. SANFORD OFFICE WEEKLY FOR PICC DRESSING CHANGES AND LAB DRAWS. PATIENTS FRIEND WAS DRIVING HIM HOME.
[2016-08-15 18:09] LABS: AEROBE ID Final report (())
== END 2016-08-15 14:16 | disposition home health service (06) | DRG 617 ==
LOC: D.ER 20:23 → D.MS 23:44
PROVIDERS: Family Medicine; Orthopaedic Surgery; ADMIT Emergency Medicine
PROC: 0Y6S0Z0 Detachment at Left 2nd Toe, Complete, Open Approach (ICD-10-PCS; principal; 2016-08-08 14:15)
PROC: 02HV33Z Insertion of Infusion Device into Superior Vena Cava, Percutaneous Approach (ICD-10-PCS; 2016-08-13)
PROC: B5181ZA Fluoroscopy of Superior Vena Cava using Low Osmolar Contrast, Guidance (ICD-10-PCS; 2016-08-13)
PROC: B548ZZA Ultrasonography of Superior Vena Cava, Guidance (ICD-10-PCS; 2016-08-13)
DX: E11.628 Type 2 diabetes mellitus with other skin complications (principal); L03.115 Cellulitis of right lower limb; M86.9 Osteomyelitis, unspecified; E87.1 Hypo-osmolality and hyponatremia; B37.0 Candidal stomatitis; E11.65 Type 2 diabetes mellitus with hyperglycemia; E11.51 Type 2 diabetes mellitus with diabetic peripheral angiopathy without gangrene; E11.69 Type 2 diabetes mellitus with other specified complication; E11.621 Type 2 diabetes mellitus with foot ulcer; L97.519 Non-pressure chronic ulcer of other part of right foot with unspecified severity; N17.9 Acute kidney failure, unspecified; R79.82 Elevated C-reactive protein (CRP); F17.200 Nicotine dependence, unspecified, uncomplicated; A49.01 Methicillin susceptible Staphylococcus aureus infection, unspecified site; B95.2 Enterococcus as the cause of diseases classified elsewhere; G89.29 Other chronic pain; M54.9 Dorsalgia, unspecified

== ENCOUNTER → 2016-08-18 19:31 | Outpatient (CLI) | payer SELFPAY ==
[2016-08-07 12:22] VITALS: BMI 24.3
[~2016-08-18 19:31] MED LIST: AMOXICILLIN500 M1 PO; Ancef 2 GM/Dextrose IV; FLORAJEN3 CAPS460 MG PO; GLUCOPHAGE500 MG PO; HYDROCODONE-APA1 TAB PO; NYSTATIN ORAL SU5 ML PO; PROTONIX40 MG PO
[2016-08-18 20:21] LABS: BASOPHILS 0.2 % (0-2); EOSINOPHILS 1.3 % (0-7); HEMATOCRIT 34.1 % (42.0-54.0); HEMOGLOBIN 10.9 g/dL (13.5-17.5); IMMATURE GRANULOCYTES 0.4 % (0-5); LYMPHOCYTES 17.7 % (15-50); MCH 28.2 pg (26.0-34.0); MCV 88.3 fL (80.0-100.0); MEAN PLATELET VOLUME 8.9 fL (7.4-10.4); MONOCYTES 4.8 % (2-11); NEUTROPHILS 75.6 % (40-80); PLATELET COUNT 440 10x3/uL (130-400); RBC 3.86 10x6/uL (4.20-6.10); RDW 13.4 % (11.5-14.5); WBC 8.2 10x3/uL (4.8-10.8)
[2016-08-18 20:45] LABS: C-REACTIVE PROTEIN 3.4 mg/dL (0.0-0.9); CREATININE - SERUM 1.1 mg/dL (0.6-1.3)
[2016-08-18 22:04] LABS: ERYTHROCYTE SEDIMENTATION RATE 102 mm/hr (0-20)
== END | disposition home or self-care (01) ==
LOC: D.LABREF 19:31
PROVIDERS: Student in an Organized Health Care Education/Training Program
DX: M86.9 Osteomyelitis, unspecified (principal); R78.81 Bacteremia

== ENCOUNTER → 2016-08-26 12:27 | Outpatient (CLI) | payer SELFPAY ==
[2016-08-07 12:22] VITALS: BMI 24.3
[2016-08-26 19:58] LABS: BASOPHILS 0.3 % (0-2); EOSINOPHILS 2.4 % (0-7); HEMATOCRIT 35.3 % (42.0-54.0); HEMOGLOBIN 11.1 g/dL (13.5-17.5); IMMATURE GRANULOCYTES 0.2 % (0-5); LYMPHOCYTES 23.3 % (15-50); MCHC 31.4 g/dL (31.0-37.0); MCV 88.9 fL (80.0-100.0); MEAN PLATELET VOLUME 9.5 fL (7.4-10.4); MONOCYTES 5.3 % (2-11); NEUTROPHILS 68.5 % (40-80); RBC 3.97 10x6/uL (4.20-6.10); RDW 13.9 % (11.5-14.5); WBC 5.9 10x3/uL (4.8-10.8)
[2016-08-26 20:02] LABS: PLATELET COUNT 304 10x3/uL (130-400)
[2016-08-26 21:33] LABS: ERYTHROCYTE SEDIMENTATION RATE 54 mm/hr (0-20)
== END | disposition home or self-care (01) ==
LOC: D.LABREF 12:27
PROVIDERS: Student in an Organized Health Care Education/Training Program
DX: Z51.81 Encounter for therapeutic drug level monitoring (principal); Z79.899 Other long term (current) drug therapy; M86.9 Osteomyelitis, unspecified

== ENCOUNTER → 2018-10-14 10:26 | Day surgery (SDC) | payer SELFPAY ==
[~2018-10-14] VITALS: Ht 172.7 cm; Wt 72.1 kg
[~2018-10-14 10:26] MED LIST changes: +ATIVAN1 MG PO; +BACTRIM 400-801 TAB PO; +CENTRUM MEN'S1 EACH PO; +DILAUDID2 MG PO; +FOLBIC RF TABL1 EACH PO; +NEURONTIN 300300 MG PO; +PENTOXIFYLLINE ER PO; +POTASSIUM99 M1 PO; +PRAVACHOL20 MG PO
[2018-10-14 11:19] LABS: ANION GAP 11.7 mmol/L (8-16); CALCIUM 8.8 mg/dL (8.5-10.1); CARBON DIOXIDE 26.2 mmol/L (21.0-32.0); CREATININE - SERUM 1.7 mg/dL (0.6-1.3); HEMATOCRIT 31.8 % (42.0-54.0); MCH 31.2 pg (26.0-34.0); MCHC 34.6 g/dL (31.0-37.0); MCV 90.1 fL (80.0-100.0); MEAN PLATELET VOLUME 8.6 fL (7.4-10.4); POTASSIUM - SERUM 4.9 mmol/L (3.5-5.1); RBC 3.53 10x6/uL (4.20-6.10); WBC 5.6 10x3/uL (4.8-10.8)
[2018-10-14 11:55] VITALS: BP 151/58; Ht 172.7 cm; Wt 72.1 kg
--- NOTE | 2018-10-14 15:01 | NUR ---
ALL DC CRITERIA MET. DC INSTRUCTIONS GIVEN. VOICES UNDERSTANDING. TAKEN OUT VIA W/C AND ASSISTED TO CAR WITH FAMILY. ADVISED TO CALL OR COME BACK IF ANY PROBLEMS.
--- NOTE | 2018-10-14 16:37 | OP ---
PATIENT NAME: FABRIZIO ALCANTAR MEDICAL RECORD: [id number] :48 [id number] AD[facility]ION DATE: SURGEON: JOHN HUNT MD DATE OF OPERATION: 10/14/2018 PREOPERATIVE DIAGNOSIS: Osteomyelitis of the great distal phalanx. POSTOPERATIVE DIAGNOSIS: Osteomyelitis of the great distal phalanx. PROCEDURE: Right great toe MTP amputation. SURGEON: John Hunt MD FACTORY SUPERINTENDENT: YAYO Montez INTRAOPERATIVE COMPLICATIONS: None. SUMMARY OF PATHOLOGIC FINDINGS: Consistent with preop diagnosis, the patient had chronic underlying osteomyelitis, which was treated for a long time. However, eventually, it caused enough breakdown that it required MTP amputation. OPERATIVE SUMMARY IN DETAIL: After obtaining the appropriate preoperative orthopedic surgery consent as well as anesthetic consultation, evaluation, and clearance, the patient was brought to the operating room and placed on the operating table in the supine position. After general laryngeal mask was administered, tourniquet was placed about the proximal aspect of the right lower extremity. The right lower extremity was then prepped and draped in routine sterile fashion. At this point, appropriate time-out was taken including patient identifiers agreed upon by all in the OR suite. The leg was elevated and exsanguinated. Tourniquet was inflated to 350 mmHg. A fishmouth incision was created. This was taken down to the level of the MTP joint which thusly disarticulated; and for adequate closure, the very distal articular aspect of the great toe phalanx was resected and a small Chevron was placed over top, resulting in excellent tension free closure. Wound was irrigated and closed with 3-0 Prolene in a mattress style fashion. Sterile dressings were applied. Tourniquet was deflated. The patient was awakened and taken to recovery in stable condition. All final needle and sponge counts were correct. TRANSINT:[id number] Voice Confirmation ID: [id number] DOCUMENT ID: [id number] JOHN HUNT MD at 1637 CC: [id number] DICTATION DATE: 10/14/18 1313 AIR EXPORT AGENT: 10/14/18 1335 [facility] [address] [place] [address]
== END | disposition home or self-care (01) ==
LOC: D.OPS 10:26 → D.PAN 17:30 → D.OPS 17:30
PROVIDERS: ATTEND Orthopaedic Surgery
DX: M86.8X7 Other osteomyelitis, ankle and foot (principal); Z01.812 Encounter for preprocedural laboratory examination